=== PATIENT | female | born 1995 | race Caucasian/White ===

== ENCOUNTER 2020-01-02 16:27 | Emergency (ER) | payer OTHER ==
[~2020-01-02] VITALS: Ht 165.1 cm; Wt 90.7 kg
[2020-01-02 16:30] VITALS: BP 94/67
[2020-01-02] MEDS ORDERED: PREDNISONE 20 M20 MG PO (17:24)
== END 2020-01-02 17:50 | disposition home or self-care (01) ==
LOC: ER 16:27
DX: J02.9 Acute pharyngitis, unspecified (principal); Z20.828 Contact with and (suspected) exposure to other viral communicable diseases